=== PATIENT | female | born 1980 | race Two or more races ===

== ENCOUNTER 2023-12-28 14:14 | Emergency (ER) | payer OTHER, SELFPAY ==
[2023-12-28 14:50] VITALS: BP 137/80; PULSE 92; RESP 16; TEMP 36.6; O2SAT 99; BMI 34.2
--- NOTE | 2023-12-28 14:51 | ED.GENADULT ---
HPI - General Adult General Stated complaint: Sent by urgent care - ultrasound Course Course Course Narrative: RME- 43-year-old female presents for evaluation of left lower abdominal pain. She went to urgent care and was referred here for a pelvic ultrasound due to history of ovarian cysts. Apparently she had a urinalysis at urgent care that showed blood in the urine. Plan for labs, UA and pelvic ultrasound
--- NOTE | 2023-12-28 19:28 | MHC.EDTECH ---
No Answer for room @ 9040
== END 2023-12-28 20:34 | disposition left against medical advice (07) ==
LOC: HO.ED 20:29
PROVIDERS: Emergency Provider Emergency Medicine
DX: R10.32 Left lower quadrant pain (principal); Z53.21 Procedure and treatment not carried out due to patient leaving prior to being seen by health care provider
CPT/HCPCS: 99281